=== PATIENT | male | born 1985 | race Caucasian/White ===

== ENCOUNTER 2016-11-05 09:04 | Day surgery (SDC) | payer MEDICAID, OTHER ==
[~2016-11-05] VITALS: Ht 170.2 cm; Wt 89.7 kg
[2016-11-05] VITALS (15 sets, daily range): BP systolic 96–119; BP diastolic 62–80; PULSE 60–92; RESP 10–17; Ht 170.2 cm; Wt 89.7 kg
[~2016-11-05 09:04] MED LIST: CEFAZOLIN 2 GM/50 ML (PMX) 50 ML IVPB ONE; SEVOFLURANE 15 MIN ONE
[2016-11-05] MEDS ORDERED: LACTATED RINGER'S 1,000 ML IV SCH (10:30)
--- NOTE | 2016-11-05 10:36 | HPN ---
Date/Time of Note Date/Time of Note DATE: 11/05/16 TIME: 10:35 Interval H&P Admission Note Pt. seen H&P reviewed: No system changes JACOBY CROSS Nov 05, 2016 10:35
[2016-11-05] MEDS ORDERED: LIDOCAINE 2% (SDV) 5 ML INJ ONE (11:29)
[2016-11-05] MEDS ORDERED: MIDAZOLAM 1 MG/ML 2 ML INJ ONE (11:29)
[2016-11-05] MEDS ORDERED: PROPOFOL 20 ML ONE (11:29)
[2016-11-05] MEDS ORDERED: FENTAnyl 50 MCG/ML VIAL ONE ×2 (11:29→12:48)
[2016-11-05] MEDS ORDERED: BUPIVACAINE 0.25% (MPF) 30 ML INJ ONE (11:57)
[2016-11-05] MEDS ORDERED: BACITRACIN/POLYMYXIN 28.35 GM OINT TOP ONE (11:57)
[2016-11-05] MEDS ORDERED: DIPHENHYDRAMINE 50 MG INJ IV PRN (12:00)
[2016-11-05] MEDS ORDERED: HYDROmorphONE (0.2 MG/ML) 10ML SYG IV PRN (12:00)
[2016-11-05] MEDS ORDERED: MEPERIDINE 25 MG INJ IV PRN (12:00)
[2016-11-05] MEDS ORDERED: OXYCODONE/ACETAMINOPHEN (5/325) TAB PO PRN (12:00)
[2016-11-05] MEDS ORDERED: PROCHLORPERAZINE 10 MG INJ IV PRN (12:00)
[2016-11-05] MEDS ORDERED: FENTAnyl 50 MCG/ML VIAL IV PRN (12:00)
[2016-11-05] MEDS ORDERED: ONDANSETRON 4 MG INJ IV PRN (12:00)
[2016-11-05] MEDS ORDERED: METOCLOPRAMIDE 10 MG INJ ONE (12:25)
[2016-11-05] MEDS ORDERED: CEFAZOLIN 1 GM INJ ONE (12:25)
[2016-11-05] MEDS ORDERED: ONDANSETRON 4 MG INJ ONE (12:25)
[2016-11-05] MEDS ORDERED: BUPIVACAINE 0.25% (MPF) 30 ML INJ INJ ONE (12:43)
--- NOTE | 2016-11-05 13:18 | PDOCDIS ---
Discharge Instructions DIAGNOSIS Discharge Diagnosis: balanitis CONDITION Patient Condition: Good HOME CARE INSTRUCTIONS: Diet Instructions: Regular ACTIVITY: Activity Restrictions: No Sexual Activity Bathing Restrictions: Sponge Bath FOLLOW UP/APPOINTMENTS Appointments 1-2 weeks OTHER ORDERS: Other Orders: remove dressing in morning. keep area dry for 3 days, of to shower no sexual activity until seen in office SCHOOL/WORK RELEASE May return to School/Work on: Nov 10, 2016 JACOBY CROSS Nov 05, 2016 13:17
--- NOTE | 2016-11-05 13:23 | OPR ---
Date/Time of Note Date/Time of Note DATE: 11/05/16 TIME: 13:21 Operative Report Free Text/Dictation Balanitis Procedure Date: Nov 05, 2016 Preoperative Diagnosis Balanitis Postoperative Diagnosis Balanitis Operation Performed Circumcision Surgeon: JACOBY CROSS Co-Surgeon: DOLORES VELASCO Anesthesia: general Estimated Blood Loss: none Specimens foreskin Tubes/Drains none Complications: None Pt Condition Post Procedure: stable Disposition: PACU JACOBY CROSS Nov 05, 2016 13:23
--- NOTE | 2016-11-05 19:57 | OPR ---
DATE OF OPERATION: INDICATION FOR SURGERY: Ming Diaz is a 31-year-old male with chronic balanitis of which he lamas s failed medical therapy ____ circumcision. How the procedure is performed, potential complications , side effects and long-term outcome were additionally reviewed. All questions were answered. Preo perative consent has been reviewed and signed. PREOPERATIVE DIAGNOSIS: Phimosis. POSTOPERATIVE DIAGNOSIS: Phimosis. OPERATION PERFORMED: Circumcision. ANESTHESIA: General with local anesthesia. SURGEON: Diallo Cross MD PERSONAL INJURY LEGAL ASSISTANT: Dharmesh Godoy MD COMPLICATIONS: None. DESCRIPTION OF PROCEDURE: The patient was brought into the operating room, placed on the operating room table in the supine position. A timeout was undertaken. Appropriate pressure points were padd ed, and he received preoperative antibiotic therapy. A circumferential incision was created on the outer aspect of the foreskin utilizing a 15 blade scalpel. Subsequently, a 15 blade scalpel was uti lized to make a circumferential incision on the inside of the foreskin. The foreskin was then remov ed en bloc. Pinpoint hemostasis was obtained. Careful attention was applied to the urethra as well as the glans penis and meatus, all of which were well preserved. The newly opposed edges were then reapproximated with interrupted 4-0 chromic suture. A Tegaderm dressing was applied as well as ___ _ dressing and loosely placed Coban. During the procedure, a total of 10 mL of 0.25% Marcaine witho ut epinephrine was instilled at the base of the penis circumferentially as well as a penile block be ing performed. He tolerated the procedure well and was transferred to recovery room in stable condi tion and discharged to home on [place] 5/325 one to two tablets p.o. q.6 hours p.r.n., dispensed #25, no refill. The sponge and needle counts were all correct. There were no complications. Dictated By: DIALLO CROSS MD EGR/NTS Conf#: [id number] DID#: [id number]
--- NOTE | 2016-11-06 11:48 | DS ---
DATE OF ADMISSION: 11/05/2016 DATE OF DISCHARGE: 11/05/2016 ADMITTING DIAGNOSIS: Phimosis. HOSPITAL COURSE: The patient was admitted to the hospital and underwent a circumcision. He tolerat ed the procedure well. He was then transferred to recovery room. Once the patient was stable, tole rating his diet, remaining afebrile and pain was well controlled, he was discharged to home. DISCHARGE INSTRUCTIONS: Activities as tolerated. Regular diet. Follow up in the office in 1 to 2 weeks. The patient has been additionally instructed to remove the dressing in the morning time. He was given a prescription for [place] 5/325 one to two tabs p.o. q.6h. p.r.n., dispensed #25, no refil l. Dictated By: JACOBY MCNALLY/NTS Conf#: [id number] DID#: [id number]
== END 2016-11-05 15:27 | disposition home or self-care (01) ==
LOC: SDS 09:04 → SUR 09:04
PROVIDERS: ATTEND Urology
DX: N47.1 Phimosis (principal); N48.1 Balanitis
CPT/HCPCS: 54161; 88304; J0690; J2250; J2405; J2765; J3010; Z7512; Z7610